=== PATIENT | female | born 1975 | race Caucasian/White ===

== ENCOUNTER 2016-12-24 10:53 | Inpatient (IN) | payer SELFPAY ==
--- NOTE | 2016-12-24 11:07 | ED Physician Chart ---
Chief Complaint/HPI - Patient Information Date Seen:: 12/24/16 Time Seen:: 10:58 Chief Complaint:: R sided abdominal pain since about 0930 today. History of Present Illness:: Pt walked in this ER for the above reason. Pt states that she was kicked in her abdomen by her horse at about 0930 today. No other bodily injury or pain. Pt took a [place] tab at 0945. Pt appears not to be in significant distress. Her abdominal pain is characterized as localized and sharp, aggravated with movement and improved with holding still. Last BM at about 0600 today that was normal in color/consistency. No hematochezia or melena. Pt has mild nausea. No vomiting. Pt denies any lightheadedness. Allergies:: NSAID's, Tramadol, PCN. Vitals:: see Nurse Note. Historian:: Patient Family MD/PCP:: Dr. Kent. LMP:: 11/28/16 Review:: Nurse's Note Reviewed Review of Systems - Review of Systems General/Constitutional: No fever, No chills, No weight loss, No weakness, No edema Skin: No skin lesions, No rash, No bruising Head: No headache, No light-headedness Eyes: No loss of vision, No pain, No diplopia ENT: No earache, No nasal drainage, No sore throat Neck: No neck pain, No swelling Cardio Vascular: No chest pain, No palpitations, No orthopnea, No edema Pulmonary: No SOB, No cough, No wheezing GI: Nausea, No vomiting, Pain G/U: No dysuria, No frequency, No hematuria Grinder Hand: No vaginal discharge, No abnormal vaginal bleed Musculoskeletal: No bone or joint pain, No back pain Endocrine: No polyuria, No polydipsia Psychiatric: No prior psych history Hematopoietic: No bruising, No lymphadenopathy Allergic/Immuno: No urticaria, No angioedema Neurological: No syncope, No focal symptoms, No weakness, No headache, No dizziness, No confusion Past Medical History - Past Medical History Past Medical History: Other (Sick sinus syndrome, s/p pacemaker placement 2 y/a. ) Family History: DVT/PE (MGM) Social History: Non Smoker, Alcohol (rare), No Drug Use, , Employed, Other (lives with her .) Employment:: ER nurse. Surgical History: other (Gastric bypass surgery '. Abdominal surgery related to intersussception '.) Psychiatricy History: None Medication: Reviewed Family Medical History - Family Member Mother History Unknown: Yes Physical Exam - Physical Examination General/Constitutional: Awake, Well-developed, well-nourished, Alert, No distress, GCS 15, Non-toxic appearing, Ambulatory Other Gen/Cons comments:: Breathes comfortably, speaks clearly, interacts normally, and ambulates without difficulty. Head: Atraumatic Eyes: Lids, conjuctiva normal, PERRL, EOMI Skin: Nl inspection, No rash, No skin lesions, No ecchymosis, Well hydrated, No lymphadenopathy ENMT: External ears, nose nl, Nasal exam nl, Lips, teeth, gums nl, Oropharynx nl Neck: Nontender, Full ROM w/o pain, No nuchal rigidity, No mass, No stridor Respiratory: Nl effort/Exclusion, Clear to Auscultation, No Wheeze/Rhonchi/Rales Cardio Vascular: RRR, No murmur, gallop, rubs GI: No organomegaly, No hernia, Normal BS's, Nondistended, No mass/bruits Other GI comments:: Tenderness at RUQ. Abdomen is soft, and nondistended. No R/G. No ecchymosis, erythema, swelling or open wound. There is an approx. 4 cm well healed longitudinal surgical scar noticed at midline just above the umbilicus. Negative Nguyen's, Cota Diaz's, and Ever's signs. Extremities: No tenderness or effusion, Full ROM, normal strength in all extremities, No edema Neuro/Psych: Alert/oriented (oriented x 3.), Judgement/insight normal, Mood normal, Normal gait, No focal deficits Misc: normal gait, Normal back, No paraspinal tenderness Labs/Radiology/EKG Results - Lab Results Results: Laboratory Tests 12/24/16 12/24/16 12/24/16 10:55 10:55 11:32 WBC 2.7 L RBC 3.20 L Hgb 11.3 L Hct 34.0 L MCV 106.3 H MCH 35.4 H MCHC Differential 33.3 RDW 13.9 Plt Count 135 L MPV 7.6 Neutrophils (Manual) 49 Lymphocytes 34 Monocytes 14 H Eosinophils 2 Atypical Lymphocytes 1 Platelet Estimate DECREASED PLATELETS Platelet Morphology NORMAL Macrocytosis 1+ RBC Morph Micro Appear ABNORMAL PT INR PTT (Actin FS) Sodium Potassium Chloride Carbon Dioxide Anion Gap BUN Creatinine Est GFR ( Amer) Est GFR (Non-Af Amer) BUN/Creatinine Ratio Glucose Whole Bld Lactic Acid Calcium Total Bilirubin AST ALT Alkaline Phosphatase Total Protein Albumin Globulin Albumin/Globulin Ratio Urine Source CLEAN C Urine Color YELLOW Urine Clarity SL. CLOUDY Urine pH 6.0 Ur Specific [place] 1.020 Urine Protein TRACE Urine Glucose (UA) NEGATIVE Urine Ketones NEGATIVE Urine Blood LARGE H Urine Nitrate NEGATIVE Urine Bilirubin NEGATIVE Urine Urobilinogen 1.0 Ur Leukocyte Esterase NEGATIVE Urine RBC 50-100 H Urine WBC NONE SEEN Ur Epithelial Cells OCCASIONAL Urine Bacteria NONE SEEN Urine Test NEGATIVE 12/24/16 12/24/16 12/24/16 11:32 11:32 12:15 WBC RBC Hgb Hct MCV MCH MCHC Differential RDW Plt Count MPV Neutrophils (Manual) Lymphocytes Monocytes Eosinophils Atypical Lymphocytes Platelet Estimate Platelet Morphology Macrocytosis RBC Morph Micro Appear PT 9.6 INR 0.92 PTT (Actin FS) 23.0 L Sodium 135 L Potassium 3.9 Chloride 106 Carbon Dioxide 23.8 Anion Gap 9.1 BUN 14 Creatinine 0.9 Est GFR ( Amer) > 60.0 Est GFR (Non-Af Amer) > 60.0 BUN/Creatinine Ratio 15.6 Glucose 94 Whole Bld Lactic Acid 0.87 Calcium 9.0 Total Bilirubin 0.3 AST 166 H ALT 222 H Alkaline Phosphatase 180 H Total Protein 6.7 Albumin 4.2 Globulin 2.5 Albumin/Globulin Ratio 1.7 Urine Source Urine Color Urine Clarity Urine pH Ur Specific [place] Urine Protein Urine Glucose (UA) Urine Ketones Urine Blood Urine Nitrate Urine Bilirubin Urine Urobilinogen Ur Leukocyte Esterase Urine RBC Urine WBC Ur Epithelial Cells Urine Bacteria Urine Test - Radiology Results Results: CT of abdomen and pelvis without contrast: Surgical changes including gastric and prior cholescystectomy and L abdominal. Multiple small bilateral nonobstructing renal calculi. Suggestion of small amount free fluid in pelvis. Correlate clinically with menstrual status. Prominent uterus. Mildly distended stool filled colon. Degenerative changes LS spine. Preliminary report per Dr. Ilya Olmos, radiologist. ED Septic Shock - . Is Septic Shock (SBP<90, OR Lactate>4 mmol\L) present?: No Reassessment (Disposition) - Reassessment Reassessment:: 1235 Pt remains stable. Remaining lab results and CT report just became available. Lab and CT findings have been reviewed with pt. Management plan has been discussed. Pt requests more pain control. Pt states that she had Dilaudid in the past that she tolerated without adverse reactions. Admitting physician is to be contacted. 1315 Case was discussed with Jayne Wakefield with pertinent H & P, CT, and lab findings reviewed. He concurred with present management. Pt is to be admitted to [facility] for observation under his care with surgical consultation with Dr. Warren ordered per Dr. Godoy. Dr. Warren has been contacted per nursing staff. Reassessment Condition:: Improved - Diagnosis Diagnosis:: Blunt trauma to R abdomen with probable renal/hepatic contusion. Stable. - Patient Disposition Admitted to:: Med/Surg Admitting Medical Physician:: Theron Godoy Time:: 13:20 Condition at Disposition:: Stable, Improved ED Discharge Plan - Patient Disposition Admit/Discharge/Transfer: Acute Care w/in this hosp
[2016-12-24 11:43] LABS: URINE BILIRUBIN NEGATIVE (NEGATIVE); URINE BLOOD LARGE (NEGATIVE); URINE GLUCOSE (UA) NEGATIVE (NEGATIVE); URINE KETONE NEGATIVE (NEGATIVE); URINE PROTEIN TRACE mg/dL (NEGATIVE)
[2016-12-24 11:45] LABS: URINE COLOR YELLOW
[2016-12-24 11:47] LABS: URINE BACTERIA NONE SEEN /hpf (NONE SEEN); URINE EPITHELIAL CELLS OCCASIONAL /lpf (FEW); URINE RBC 50-100 /hpf (0-5); URINE WBC NONE SEEN /hpf (0-5)
[2016-12-24 11:58] LABS: INR 0.92 (0.5-1.4); PROTHROMBIN TIME (TEST) 9.6 SECONDS (9.5-11.5)
[2016-12-24 12:02] LABS: HEMOGLOBIN 11.3 gm/dL (11.7-15.5); MEAN CORPUSCULAR HEMOGLOBIN 35.4 pg (27.0-31.0); MEAN CORPUSCULAR HGB CONC 33.3 pg (28.0-36.0); MEAN PLATELET VOLUME 7.6 fl; PLATELET COUNT 135 Th/cmm (150-400); RED CELL DISTRIBUTION WIDTH 13.9 % (11.5-20.0)
[2016-12-24 12:03] LABS: ALB/GLOB RATIO 1.7 (1.0-1.8); ALKALINE PHOSPHATASE 180 U/L (34-104); ANION GAP 9.1 (7.0-16.0); BILIRUBIN,TOTAL 0.3 mg/dL (0.3-1.0); BUN - UREA NITROGEN 14 mg/dL (7-25); BUN/CREATININE RATIO 15.6; CARBON DIOXIDE 23.8 mEq/L (21.0-31.0); CHLORIDE 106 mEq/L (98-107); CREATININE - SERUM 0.9 mg/dL (0.6-1.2); GLUCOSE 94 mg/dL (70-105); POTASSIUM SERUM 3.9 mEq/L (3.5-5.1); SGOT 166 U/L (13-39); SGPT/ALT 222 U/L (7-52); SODIUM SERUM 135 mEq/L (136-145); WHITE BLOOD COUNT 2.7 Th/cmm (4.8-10.8)
[2016-12-24 12:04] LABS: MEAN CELL VOLUME 106.3 fl (81-100)
[2016-12-24 12:28] LABS: EOSINOPHIL 2 % (0-5); NEUTROPHILS 49 % (40-80); TOTAL CELLS COUNTED 100
[2016-12-24 12:29] LABS: PLATELET ESTIMATE DECREASED PLATELETS (NORMAL); PLATELET MORPHOLOGY NORMAL (NORMAL)
[2016-12-24] MEDS ORDERED: HYDROmorphone 1 mg/mL 1mL Syr ONE (12:36)
[2016-12-24] MEDS ORDERED: HYDROmorphone 1 mg/mL 1mL Syr IVP STA (12:37)
[2016-12-24] MEDS ORDERED: D5-0.45NS w/20 mEq KCL 1,000 ML IV SCH (13:38)
[2016-12-24] MEDS: Morphine Sulfate 2 mg/mL 1mL Syr IV PRN ×2 (14:22→17:55)
[2016-12-24 16:50] VITALS: BP 133/89
--- NOTE | 2016-12-25 00:17 | History & Physical ---
ADMIT DATE: 12/24/2016 CHIEF COMPLAINT: Trauma to the right side of the abdomen. HISTORY OF PRESENT ILLNESS: The patient is a 41-year-old female presented to the Emergency Room with pain at the right lower abdomen after she was kicked by the horse. The patient was evaluated by the ER physician. Initial workup was negative for abdominal hematoma. The patient admitted to the hospital for observation and surgeon on-call, Dr. Stratton consulted on the case. When I saw the patient, she was awake, alert, oriented, not in pain or distress. She denies any nausea, any vomiting, no dysuria or hematuria. PAST MEDICAL HISTORY: Not significant. PAST SURGICAL HISTORY: No recent surgery. ALLERGIES: None. MEDICATIONS: None. SOCIAL HISTORY: No smoking, no alcohol, and no drug. FAMILY HISTORY: Noncontributory. REVIEW OF SYSTEMS: IMMUNO SYSTEM: No history of chronic renal disorder. CARDIOVASCULAR SYSTEM: No coronary artery disease. ENDOCRINE SYSTEM: No diabetes or thyroid problem. GASTROINTESTINAL SYSTEM: No upper or lower gastrointestinal bleed. NEUROLOGICAL SYSTEM: No seizure disorder. PHYSICAL EXAMINATION: GENERAL: She is awake, alert, oriented, not in pain or distress. VITAL SIGNS: Temperature is 98.6, heart rate 70, and blood pressure 105/68. HEENT: Normocephalic. Pupils are reacting and equal to light and accommodation. Sclerae clear. NECK: Supple. Negative for lymphadenopathy, JVD, or bruit. CHEST: Bilaterally normal. No rales, rhonchi, or wheezing. HEART: S1 and S2 normal. ____. ABDOMEN: Soft, mild tenderness to the right side of the abdominal wall. Bowel sounds are positive. Rebound negative. EXTREMITIES: No edema. NEUROLOGIC: She is awake, alert, and oriented. No focal motor or sensory deficits. SKIN: Significant for superficial redness of the skin on the right side of the abdomen. LABORATORY DATA: White blood cells 2.7, hemoglobin 11.3, hematocrit 34.0, and platelet is 135. Sodium 135, potassium 3.9, BUN 14, creatinine ____. INR 0.92. AST 166, ALT of 222, alkaline phosphatase 180. Urinalysis, rbc's 50-100. CT of the abdomen was significant for bilateral nonobstructive calculus. ASSESSMENT: 1. Soft tissue trauma to the right side of the abdominal wall. 2. Mild anemia. 3. Bilateral kidney stones, nonobstructive. 4. Microscopic hematuria. PLAN: The patient admitted to the hospital under Dr. Godoy's service. We will start her on IV fluids, regular diet, morphine 2 mg IV q. 4 p.r.n. for pain. CBC, CMP for tomorrow. The patient is asking me to have Dilaudid instead of the morphine, I do not see any reason for that. So, I kept her on the morphine until the patient is evaluated by the general surgeon if she needs that. The patient is stable clinically. JOB# [id number]
--- NOTE | 2016-12-25 09:01 | Diagnostic Imaging Report ---
Exam: CT examination abdomen pelvis HISTORY: Abdominal pain Total DLP equals 451 CTDI equals 8.9 Findings: Multiple contiguous thin section of the abdomen pelvis obtained from lower thorax to pubic symphysis with administration of oral contrast material. No prior studies available comparison. Intravenous contrast was not utilized. The study demonstrates normal aeration of the lung parenchyma the bases. The liver parenchyma spleen are normal. There is evidence of previous gastric bypass surgery sequela. The stomach distended with food content and there is evidence of previous cholecystectomy. The adrenal glands intact. The kidneys demonstrate nonobstructing calculi bilaterally there is no evidence of obstructive uropathy. The pancreas is poorly seen. Oral contrast progresses through small bowel loops and large bowel. There is no evidence of diverticular disease of diverticulitis. Large amount of fecal content is noted throughout the colon particularly the sigmoid colon. Small amount of free fluid is noted cul-de-sac. The urinary bladder is normal. Uterus is enlarged with fibroid infiltration. IMPRESSION: 1. Postsurgical changes status post cholecystectomy and gastric bypass procedure. 2 Multiple nonobstructing renal calculi. 3. Enlarged fibroid uterus with small amount of physiological fluid in cul-de-sac.
== END 2016-12-24 20:55 | disposition left against medical advice (07) | DRG 914 ==
LOC: ER 10:53 → MSI 13:35
PROVIDERS: ADMIT Family Medicine; ATTEND Family Medicine
DX: S39.91XA Unspecified injury of abdomen, initial encounter (principal); N20.0 Calculus of kidney; R10.9 Unspecified abdominal pain; D64.9 Anemia, unspecified; R31.29 Other microscopic hematuria; W55.12XA Struck by horse, initial encounter; Y93.89 Activity, other specified; Y92.89 Other specified places as the place of occurrence of the external cause; Y99.8 Other external cause status; Z88.0 Allergy status to penicillin; Z88.8 Allergy status to other drugs, medicaments and biological substances; Z95.0 Presence of cardiac pacemaker
CPT/HCPCS: 36415-UA; 80053-TC; 81001-TC; 81025-TC; 83605; 85007-TC; 85027-TC; 85610-TC; 90784; J1170; J2270; J2405; Z7610